=== PATIENT | male | born 1945 | race Caucasian/White ===

== ENCOUNTER 2016-09-17 07:55 | Emergency (ER) | payer OTHER ==
[~2016-09-17] VITALS: Ht 177.8 cm; Wt 87.0 kg
[~2016-09-17 07:55] MED LIST: ALLOPURINOL100 MG PO; AMIODARONE HCL200 MG PO; ASPIR 8181 M1 PO; ASPIRIN325 MG PO; ATORVASTATIN PO; CADUET 10/101 TABLET PO; COUMADIN4 MG PO; COUMADIN5 MG PO; COUMADIN7.5 MG PO; DIGITEK125 MC2 PO; DIGOXIN125 MCG PO; DOXAZOSIN MESYLA2 MG PO; DOXYCYCLINE HY100 MG PO; FUROSEMIDE40 MG PO; HYDROCHLOROTHIA25 MG PO; HYDROCODON-ACE1 EAC7 PO; IRON325 M1 PO; JANTOVEN4 MG PO; JANTOVEN5 M1 PO; JANTOVEN5 MG; JANTOVEN5 MG PO; JANTOVEN7.5 MG PO; K-DUR20 MEQ PO; KEFLEX500 MG PO; KLOR-CON M2020 MEQ PO; LANSOPRAZOLE30 MG PO; LASIX40 MG PO; LIPITOR20 MG PO; LISINOPRIL20 MG; LISINOPRIL20 MG PO; LOPRESSOR100 M1 PO; METOPROLOL PO; METOPROLOL TAR100 MG PO; MIRALAX17 GM PO; NIASPAN,SLO-N1000 MG PO; NIASPAN1000 MG PO; NORVASC10 MG PO; NORVASC5 MG PO; OMEGA 3-6-91200 MG PO; PACERONE100 MG; PACERONE200 MG PO; POTASSIUM CHLO20 MEQ PO; PREVACID30 MG PO; PRILOSEC20 MG PO; PRINIVIL20 MG PO; PROTONIX40 MG PO; SPIRONOLACTONE25 MG PO; TOPROL XL100 MG PO; VITAMIN D31000 UNIT PO; VITAMIN D400 UNIT PO; VITAMIN E400 UNI3 PO; WARFARIN SODIUM4 MG PO; XARELTO15 MG PO; ZESTORETIC,P1 TABLE2 PO; ZESTRIL,PRINIVI20 MG PO; ZESTRIL20 MG PO; [UNRECOGNIZED DRUG - REMARK]
[2016-09-17 08:28] LABS: HEMATOCRIT 34.7 % (38.0-50.0); MCH 31.6 PG (29.0-34.0); MCV 92.8 FL (86-99); MEAN PLAT.VOLUME 9.2 uM^3 (9.0-12.4); PLATELET COUNT 69 K/uL (156-360); RBC DIS.WIDTH-CV 14.8 % (11.8-14.6); RBC DIS.WIDTH-SD 48.1 % (39-53); RED BLOOD COUNT 3.74 M/uL (4.00-5.50); WHITE BLOOD COUNT 6.3 K/uL (4.1-10.2)
[2016-09-17 08:32] LABS: EOSINOPHIL (%) 2.5 % (0-5); EOSINOPHIL COUNT 0.2 K/uL (0-0.3); IMMATURE GRANULOCYTE (%) 0.3 % (0.0-0.7); IMMATURE GRANULOCYTE COUNT 0.2 K/uL; LYMPHOCYTE COUNT 1.2 K/uL (1.0-2.8); MONOCYTE (%) 16.3 % (3-12); NEUTROPHIL (%) 62.1 % (45-76); NEUTROPHIL COUNT 3.9 K/uL (1.8-6.4)
[2016-09-17 08:38] LABS: INTER. NORMALIZED RATIO 2.9; PROTHROMBIN TIME 30.8 (9.2-11.2)
[2016-09-17 09:22] VITALS: BP 162/65
== END 2016-09-17 09:23 | disposition home or self-care (01) ==
LOC: EME 07:55
PROVIDERS: Physician Assistant
DX: R04.0 Epistaxis (principal); I10 Essential (primary) hypertension; E78.5 Hyperlipidemia, unspecified; Z79.01 Long term (current) use of anticoagulants; I25.2 Old myocardial infarction; Z95.1 Presence of aortocoronary bypass graft; Z88.2 Allergy status to sulfonamides
CPT/HCPCS: 85025; 85610; 99281; 99283

== ENCOUNTER 2016-11-02 09:14 | Emergency (ER) | payer OTHER ==
[~2016-11-02] VITALS: Ht 177.8 cm; Wt 97.5 kg
[2016-11-02 09:44] LABS: HEMATOCRIT 38.4 % (38.0-50.0); MCH 32.2 PG (29.0-34.0); MCHC 34.4 G/DL (30.0-36.0); MCV 93.7 FL (86-99); MEAN PLAT.VOLUME 10.7 uM^3 (9.0-12.4); PLATELET COUNT 86 K/uL (156-360); RBC DIS.WIDTH-CV 14.2 % (11.8-14.6); WHITE BLOOD COUNT 7.4 K/uL (4.1-10.2)
[2016-11-02 09:54] LABS: INTER. NORMALIZED RATIO 3.3; PROTHROMBIN TIME 35.2 (9.2-11.2)
[2016-11-02 09:57] LABS: CHLORIDE 109 mEq/L (99-109); POTASSIUM 4.9 mEq/L (3.7-5.4); SODIUM 140 mEq/L (136-147)
[2016-11-02 09:59] LABS: GLUCOSE 115 mg/dL (70-99)
[2016-11-02 10:00] LABS: ANION GAP 10 MEQ/L (2-14)
[2016-11-02 10:03] LABS: GFR ESTIMATE (CALCULATED) 32 mL/min/; UREA NITROGEN (BUN) 35 mg/dL (9-23)
[2016-11-02 12:17] VITALS: BP 122/61
== END 2016-11-02 12:18 | disposition home or self-care (01) ==
LOC: EME 09:14
DX: R04.0 Epistaxis (principal); N18.9 Chronic kidney disease, unspecified; I12.9 Hypertensive chronic kidney disease with stage 1 through stage 4 chronic kidney disease, or unspecified chronic kidney disease; Z79.01 Long term (current) use of anticoagulants; Z95.1 Presence of aortocoronary bypass graft; Z86.718 Personal history of other venous thrombosis and embolism
CPT/HCPCS: 80048; 85027; 85610; 86850; 86900; 86901; 99281; 99283

== ENCOUNTER → 2017-03-23 | Outpatient (CLI) | payer OTHER ==
[~2017-03-23] VITALS: Ht 177.8 cm; Wt 90.7 kg
[~2017-03-23] MED LIST changes: +JANTOVEN2 MG PO; +ULORIC40 MG PO
[2017-03-23 15:26] LABS: INTER. NORMALIZED RATIO 1.8; PROTHROMBIN TIME 19.7 SEC (10.2-12.9)
[2017-03-23 15:29] LABS: PTT 39.5 SEC (25-37)
== END | disposition home or self-care (01) ==
LOC: AMB 14:31
PROVIDERS: Specialist
DX: D12.4 Benign neoplasm of descending colon (principal); D12.5 Benign neoplasm of sigmoid colon; Z86.010 Personal history of colon polyps; K57.30 Diverticulosis of large intestine without perforation or abscess without bleeding; K64.8 Other hemorrhoids; K74.60 Unspecified cirrhosis of liver; I85.10 Secondary esophageal varices without bleeding; K29.70 Gastritis, unspecified, without bleeding; E78.5 Hyperlipidemia, unspecified; N40.0 Benign prostatic hyperplasia without lower urinary tract symptoms; I25.10 Atherosclerotic heart disease of native coronary artery without angina pectoris; Z95.2 Presence of prosthetic heart valve; Z95.1 Presence of aortocoronary bypass graft; I25.2 Old myocardial infarction; Z95.810 Presence of automatic (implantable) cardiac defibrillator; I12.9 Hypertensive chronic kidney disease with stage 1 through stage 4 chronic kidney disease, or unspecified chronic kidney disease; N18.9 Chronic kidney disease, unspecified; D69.6 Thrombocytopenia, unspecified; Z86.718 Personal history of other venous thrombosis and embolism; Z79.01 Long term (current) use of anticoagulants
CPT/HCPCS: 85610; 85730; 88305; 93005; J3010